=== PATIENT | female | born 1980 | race Caucasian/White ===

== ENCOUNTER 2017-08-09 09:14 | Day surgery (SDC) | payer OTHER ==
[2017-08-09] MEDS ORDERED: CEFAZOLIN 1 GM/50 ML (PMX) 50 ML IVPB (11:30)
[2017-08-09] MEDS ORDERED: SOD CHLORIDE 0.9% 1,000 ML IV (11:30)
[2017-08-09 11:39] LABS: ADD MAN DIFF? NO
[2017-08-09 11:42] LABS: ABNORMAL IP MESSAGE 1; BASOPHILS % 0.5 % (0.0-2.0); EOSINOPHILS # 0.4 10^3/ul (0.0-0.5); EOSINOPHILS % 7.5 % (0.0-7.0); HEMATOCRIT 33.8 % (37.0-47.0); HEMOGLOBIN 11.7 g/dl (12.0-16.0); LYMPHOCYTES % 33.7 % (15.0-51.0); MEAN CORPUSCULAR HEMOGLOBIN 31.5 pg (29.0-33.0); MEAN CORPUSCULAR HGB CONC 34.6 g/dl (32.0-37.0); MEAN CORPUSCULAR VOLUME 91.1 fl (82.0-101.0); MEAN PLATELET VOLUME 10.7 fl (7.4-10.4); MONOCYTE # 0.3 10^3/ul (0.3-0.9); MONOCYTES % 5.5 % (0.0-11.0); NEUTROPHIL # 3.1 10^3/ul (1.6-7.5); NEUTROPHILS % 52.6 % (39.0-77.0); PLATELET COUNT 286 10^3/UL (140-415); RED BLOOD COUNT 3.71 10^6/ul (4.20-5.40); RED CELL DISTRIBUTION WIDTH 11.5 % (11.5-14.5)
[2017-08-09 11:42] LABS: WHITE BLOOD COUNT 5.9 10^3/ul (4.8-10.8)
[2017-08-09 11:52] LABS: POSITIVE DIFF @See below
[2017-08-09 12:00] LABS: ALANINE AMINOTRANSFERASE 54 IU/L (13-69); ALBUMIN 4.1 g/dl (3.3-4.9); ALBUMIN/GLOBULIN RATIO 1.28; ALKALINE PHOSPHATASE 70 IU/L (42-121); ANION GAP 13 (8-16); ASPARTATE AMINO TRANSFERASE 41 IU/L (15-46); BILIRUBIN,INDIRECT 0.3 mg/dl (0-1.1); BILIRUBIN,TOTAL 0.3 mg/dl (0.2-1.3); CARBON DIOXIDE 27 mmol/L (21-31); CHLORIDE 106 mmol/L (97-110); GLUCOSE 77 mg/dl (70-220); TOTAL PROTEIN 7.3 g/dl (6.1-8.1)
[2017-08-09 12:02] LABS: BLOOD UREA NITROGEN 10 mg/dl (7-20); CALCIUM 8.8 mg/dl (8.4-10.2); CREATININE 0.57 mg/dl (0.44-1.00); POTASSIUM 4.3 mmol/L (3.5-5.1); SODIUM 142 mmol/L (135-144)
[2017-08-09] MEDS ORDERED: PROPOFOL 20 ML (12:28)
[2017-08-09] MEDS ORDERED: CEFAZOLIN 1 GM INJ (12:28)
[2017-08-09] MEDS ORDERED: MIDAZOLAM 1 MG/ML 2 ML INJ (12:28)
[2017-08-09] MEDS ORDERED: NEOSTIGMINE 3 MG/3 ML SYRINGE (12:28)
[2017-08-09] MEDS ORDERED: ROCURONIUM 50 MG INJ (12:28)
[2017-08-09] MEDS ORDERED: GLYCOPYRROLATE 0.4 MG INJ (12:28)
[2017-08-09] MEDS ORDERED: FENTAnyl 50 MCG/ML VIAL (12:28)
[2017-08-09] MEDS ORDERED: DEXAMETHASONE 4 MG/ML 1 ML INJ (12:29)
[2017-08-09] MEDS ORDERED: ONDANSETRON 4 MG INJ (12:29)
[2017-08-09] MEDS ORDERED: SUGAMMADEX SODIUM 200 MG/2 ML VIAL IV (12:53)
[2017-08-09] MEDS ORDERED: TRIMETHOBENZAMIDE 100 MG/ML VIAL IM (13:00)
[2017-08-09] MEDS ORDERED: FENTAnyl 50 MCG/ML VIAL IV ×2 (13:00)
[2017-08-09] MEDS ORDERED: ALBUTEROL 0.083% (NEB) 2.5 MG/3 ML AMP HHN (13:00)
[2017-08-09] MEDS ORDERED: LABETALOL HCL 20MG INJ IV (13:00)
[2017-08-09] MEDS ORDERED: ONDANSETRON 4 MG INJ IV (13:00)
[2017-08-09] MEDS ORDERED: OXYCODONE/ACETAMINOPHEN (5/325) TAB PO ×2 (13:00)
[2017-08-09] MEDS ORDERED: HYDROmorphONE (0.2 MG/ML) 10ML SYG IV ×3 (13:00)
[2017-08-09] MEDS ORDERED: MIDAZOLAM 1 MG/ML 2 ML INJ IV (13:00)
[2017-08-09] MEDS ORDERED: hydrALAzine 20 MG INJ IV (13:00)
[2017-08-09] MEDS ORDERED: EPHEDrine SULFATE 50 MG/5 ML SYG IV (13:00)
[2017-08-09] MEDS ORDERED: IPRATROPIUM (NEB) 0.5 MG/2.5 ML AMP HHN (13:00)
[2017-08-09] MEDS ORDERED: MEPERIDINE 25 MG INJ IV (13:00)
[2017-08-09 13:06] LABS: INR 0.99; PROTIME 13.2 Sec (11.9-14.9)
[2017-08-09 13:07] LABS: PARTIAL THROMBOPLASTIN TIME 29.2 Sec (25.0-35.0)
[2017-08-09] MEDS: DIPHENHYDRAMINE 50 MG INJ IV (13:21)
[2017-08-09] MEDS: FENTAnyl 50 MCG/ML VIAL IV ×3 (13:23→13:36)
== END 2017-08-09 15:15 | disposition home or self-care (01) ==
LOC: SDS 09:14
DX: L72.0 Epidermal cyst (principal)
CPT/HCPCS: 19120; 80053; 84703; 85025; 85610; 85730; 88307